=== PATIENT | female | born 1960 | race Caucasian/White ===

== ENCOUNTER → 2016-04-07 | Outpatient (CLI) | payer OTHER, MEDICAID | LOC: BRMIMAGING 10:56 | PROVIDERS: ATTEND Internal Medicine | DX: M19.041 Primary osteoarthritis, right hand (principal); M19.042 Primary osteoarthritis, left hand; M16.11 Unilateral primary osteoarthritis, right hip | CPT/HCPCS: 73130-PO; 73521-PO ==

== ENCOUNTER → 2016-04-18 | Outpatient (CLI) | payer OTHER, MEDICAID | LOC: FIMAGING 12:43 | PROVIDERS: ATTEND Internal Medicine | DX: R05 Cough (principal) ==

== ENCOUNTER → 2016-04-26 | Outpatient (CLI) | payer OTHER, MEDICAID ==
[~2016-04-26] MED LIST: IOPAMIDOL (ISOVUE-300) 100 ML BTL IV ONE
== END ==
LOC: CIMAGING 09:55
PROVIDERS: ATTEND Internal Medicine
DX: J44.9 Chronic obstructive pulmonary disease, unspecified (principal); K80.20 Calculus of gallbladder without cholecystitis without obstruction; R19.05 Periumbilic swelling, mass or lump; I25.10 Atherosclerotic heart disease of native coronary artery without angina pectoris; F17.200 Nicotine dependence, unspecified, uncomplicated
CPT/HCPCS: 71260; 74177; Q9967

== ENCOUNTER 2016-06-14 11:42 | Observation (INO) | payer OTHER, MEDICAID ==
[2016-06-14] MEDS ORDERED: ceFAZolin 1 GM/5 ML SYR ONE (12:49)
[2016-06-14] MEDS ORDERED: BUPIVACAINE 0.5% 30 ML SDV ONE (12:49)
[2016-06-14] MEDS ORDERED: HEPARIN 1000 UNIT/1 ML MDV ONE (12:49)
[2016-06-14] MEDS ORDERED: LIDOCAINE 1% 5 ML SDV ID PRN (12:49)
[2016-06-14] MEDS ORDERED: LR 1,000 ML IV ONE (12:49)
[2016-06-14] MEDS ORDERED: cefOXitin SODIUM 1 GM in D5W 50 ML IV ONE (13:00)
[2016-06-14] MEDS ORDERED: MIDAZOLAM 2 MG/2 ML VIAL ONE (14:42)
[2016-06-14] MEDS ORDERED: fentaNYL 250 MCG/5 ML INJ ONE (14:53)
[2016-06-14] MEDS ORDERED: PROPOFOL 200 MG/20 ML VIAL ONE (14:55)
[2016-06-14] MEDS ORDERED: fentaNYL 100 MCG/2 ML INJ ONE ×2 (15:51→17:08)
[2016-06-14] MEDS ORDERED: HYDROmorphONE/DILAUDID 1 MG/ML SYR IVP PRN (17:27)
[2016-06-14] MEDS ORDERED: ONDANSETRON 4 MG/2 ML VIAL IVP PRN (17:27)
[2016-06-14] MEDS ORDERED: oxyCODONE IR 5 MG TAB PO PRN (17:29)
[2016-06-14] MEDS ORDERED: NS 1,000 ML IV SCH (17:30)
[2016-06-14] MEDS ORDERED: LORazepam 2 MG/ML INJ IVP PRN (17:31)
[2016-06-14 18:17] LABS: HEMATOCRIT 44.1 % (38.0-47.0)
[2016-06-14] MEDS ORDERED: LORazepam 2 MG/ML INJ ONE (18:17)
[2016-06-14] MEDS ORDERED: ALBUTEROL 3 ML DEYVIAL ONE (18:21)
[2016-06-14] MEDS ORDERED: NICOTINE 21 MG/24 HR PATCH TD SCH (20:00)
--- NOTE | 2016-06-14 21:47 | POSTOPPROG ---
Post Op Note Date of Operation: 06/14/16 Surgeon: Philip Feldman Buccaro: sera Anesthesiologist: warm Anesthesia: GET(General Endotracheal) Pre-op Diagnosis: cholelithiasis/ incarcerated ventral hernia Post-op Diagnosis: same + crrhosis Indication: pain Procedure: lap allison/ lap wedge liver bx/ repair incarcerated ventral hernia Findings: cirrhosis, stones, 3 cm incarceratedventral hernia Inf/Abcess present in the surg proc area at time of surgery?: No Depth: Organ Space EBL: Minimal Complications: 0 Specimen(s): gallbladder/ liver bx/ hernia sac
--- NOTE | 2016-06-14 22:00 | SOAPPROG ---
SOAP Progress Note Assessment/Plan: Assessment: 55 female postop from hernia repair and lap allison and wedge liver bx now insisting on going home against our advise/ she o2 supplementation and watch for bleeding internally as well as in wound/ she has already started a hematoma in evans incision she refuses to listen and insists on leaving i have spent over 90 min with pt and family Plan:arrange home o2/ office fu in am/ no smoking and ice to incision 06/14/16 21:56 Objective: Vital Signs Temp Pulse Resp BP Pulse Ox 37.1 C 79 20 117/69 95 06/14/16 19:46 06/14/16 21:16 06/14/16 21:16 06/14/16 19:46 06/14/16 21:16 Laboratory Results 06/14/16 18:10 06/13/16 06/14/16 06/15/16 05:59 05:59 05:59 Intake Total 1450 Output Total 10 Balance 1440 ICD10 Worksheet Patient Problems: Problems Problem Status Onset Incarcerated ventral hernia Acute - ICD10 Problem Qualifiers (1) Incarcerated ventral hernia
[2016-06-14 22:19] VITALS: BP 113/79; PULSE 75; RESP 16; TEMP 98.5; O2SAT 97
[2016-06-16] MEDS ORDERED: ENOXAPARIN 40 MG/0.4 ML SYR SC SCH (09:00)
--- NOTE | 2016-06-17 13:56 | GOP ---
[f rep st] OPERATIVE REPORT DATE OF OPERATION: 06/14/2016 SURGEON: Philip Feldman MD PREOPERATIVE DIAGNOSIS: 1. Incarcerated ventral hernia. 2. Symptomatic cholelithiasis. POSTOPERATIVE DIAGNOSIS: 1. Incarcerated ventral hernia. 2. Symptomatic cholelithiasis. 3. Cirrhosis. PROCEDURE PERFORMED: 1. Laparoscopic cholecystectomy. 2. Laparoscopic liver wedge biopsy. 3. Open repair of incarcerated ventral hernia. FINDINGS: The patient was found to have some form of cirrhosis; final path is pending. She had a no ninflamed gallbladder with stones, and she had a 2 cm ventral hernia defect with incarcerated preper itoneal fat. DESCRIPTION OF PROCEDURE: Patient was taken to the operating room where she received satisfactory g eneral endotracheal anesthesia. She was placed in a supine position, and prepped and draped in the u sual sterile fashion. A transverse incision was made over the incarcerated ventral hernia with disse ction carried down through subcutaneous tissue. The hernia sac was dissected free from surrounding t issue. The sac was opened at the fascia level, incarcerated fatty tissue was excised with electrocau jose, and the remainder was reduced. A 10 mm trocar was introduced to this hernia site, and pneumope ritoneum was established. Three other trocars were placed in the upper abdomen under direct vision. The liver was surprisingly quite nodular. A wedge biopsy was taken of the liver on the right lobe. H emostasis was obtained with electrocautery. Attention was then turned to the gallbladder which was elevated up. The cystic triangle was carefull y dissected free. The cystic duct and cystic artery were exposed. They were multiply hemoclipped and divided with care to avoid injury to the common duct. A good clear view had been established. The peritoneum over the gallbladder was incised and the gallbladder was dissected free from the liver be d and extracted through the ventral hernia site. Hemostasis was assured. Wound was irrigated. Trocar s were removed under direct vision. Trocar sites were closed with 4-0 Monocryl subcuticular stitch f or the skin, and all layers infiltrated with Marcaine. Attention was then turned to the hernia site which was closed in a two-layer, [id number] type t ransverse closure using 0 Surgilon mattress sutures. She tolerated the procedure well. There were no complications. Taken to the recovery room in good co ndition. /[id number]/MODL
== END 2016-06-14 23:43 | disposition home or self-care (01) ==
LOC: FSGY 11:42 → F3E 17:27
PROVIDERS: ADMIT Surgery; ATTEND Surgery
DX: K80.00 Calculus of gallbladder with acute cholecystitis without obstruction (principal); K43.6 Other and unspecified ventral hernia with obstruction, without gangrene; K74.60 Unspecified cirrhosis of liver
CPT/HCPCS: 47379; 47562; 49561; 88302; 88304; 88307; 88313; J0690; J0697; J2060; J2250; J2704; J3010

== ENCOUNTER 2016-06-20 13:52 | Inpatient (IN) | payer OTHER, MEDICAID ==
[2016-06-20] MEDS ORDERED: HYDROmorphONE/DILAUDID 1 MG/ML SYR IVP ONE ×3 (14:59→18:58)
[2016-06-20] MEDS ORDERED: ONDANSETRON 4 MG/2 ML VIAL IVP ONE (15:00)
[2016-06-20] MEDS ORDERED: NS 1,000 ML IV ONE (15:01)
[2016-06-20 15:37] LABS: % IMMATURE GRANULYOCYTES 0.3 % (0.0-1.1); ABSOLUTE IMMATURE GRANULOCYTES 0.02 10^3/uL (0.00-0.10); ADD DIFF? NO; ADD MORPH? NO; ADD SCAN? NO; ATYPICAL LYMPHOCYTE FLAG 0 (0-99); FRAGMENT RBC FLAG 0 (0-99); HEMATOCRIT 38.9 % (38.0-47.0); HEMOGLOBIN 13.7 g/dL (12.6-16.3); LEFT SHIFT FLG 0 (0-99); LIPEMIA HEMOLYSIS FLAG 90 (0-99); MEAN CELL HEMOGLOBIN 32.2 pg (27.9-34.1); MEAN CELL HEMOGLOBIN CONCENTR. 35.2 g/dL (32.4-36.7); MEAN CELL VOLUME 91.5 fL (81.5-99.8); MEAN PLATELET VOLUME 8.8 fL (8.7-11.7); PLATELET CLUMPS FLAG 0 (0-99); PLATELET COUNT 300 10^3/uL (150-400); RED BLOOD CELL COUNT 4.25 10^6/uL (4.18-5.33); RED CELL DISTRIBUTION WIDTH 12.7 % (11.5-15.2)
[2016-06-20] MEDS ORDERED: HYDROmorphONE/DILAUDID 1 MG/ML SYR ONE (15:40)
--- NOTE | 2016-06-20 15:40 | EDPHY ---
H & P Time Seen by Provider: 06/20/16 14:45 HPI/ROS: CHIEF COMPLAINT: Fever, abdominal pain HISTORY OF PRESENT ILLNESS: 55-year-old female 1 week status post cholecystectomy and ventral hernia repair presents with fever and abdominal pain. She was doing well in the postoperative period until this morning when she developed fever and shaking chills. Associated with central abdominal pain, swelling and bruising. Pain is moderate and increases coughing and deep inspiration. No change in usual cough. No dysuria. REVIEW OF SYSTEMS: Constitutional: No fever, no chills Eyes: No visual changes ENT: No sore throat Respiratory: no shortness of breath Cardiac: No chest pain Genitourinary: No hematuria, no dysuria Musculoskeletal: No leg pain or swelling Skin: No rash Neurological: No headache, no weakness Psychiatric: No depression Past Medical/Surgical History: Cholecystectomy Hepatitis-C COPD, on home oxygen in the postoperative period Family history: Hemophilia Social History: FH: Hemophilia, pt is carrier Smoking Status: Heavy smoker Physical Exam: General Appearance: Alert, pleasant Eyes: Pupils equal and round, no conjunctival pallor or injection ENT, Mouth: Mucous membranes moist Neck: Normal inspection Respiratory: Lungs are clear to auscultation Cardiovascular: Regular rate and rhythm Gastrointestinal: Abdomen is soft, periumbilical surgical wound is intact, with surrounding erythema, just above the surgical incisions there is a 10 cm firm and tender area of swelling, with overlying ecchymosis that extends from the upper abdominal to the pelvis Neurological: A&O, nonfocal exam Skin: Warm and dry Extremities: Nontender, no pedal edema Psychiatric: Mood and affect normal Constitutional: Initial Vital Signs Temperature (C) 36.9 C 06/20/16 14:04 Heart Rate 86 06/20/16 14:04 Respiratory Rate 22 H 06/20/16 14:04 Blood Pressure 134/80 H 06/20/16 14:04 O2 Sat (%) 84 L 06/20/16 14:04 O2 Delivery Mode Nasal Cannula O2 (L/minute) 2 Allergies/Adverse Reactions: metal Allergy (Uncoded 06/20/16 14:02) Rash Home Medications: Medication Instructions Recorded Acetaminophen [Tylenol ES 500 mg 1,000 mg PO DAILY PRN 06/20/16 (*)] DESVENLAFAXINE SUCCINATE [Pristiq] 50 mg PO DAILY 06/20/16 Polyethylene Glycol 3350 [Miralax 17 gm PO DAILY PRN 06/20/16 17 gm (*)] clonazePAM [klonoPIN (*)] 1 mg PO DAILY PRN 06/20/16 lamoTRIgine [LamICTAL 100 MG (*)] 100 mg PO HS 06/20/16 oxyCODONE/APAP 5/325 [Percocet 0.5 - 1 tab PO DAILY PRN 06/20/16 5/325 (*)] traZODone [traZODONE 50MG (*)] 100 mg PO HS 06/20/16 Medical Decision Making - Diagnostics Imaging Results: Abdomen CT 06/20/16 15:36 Impression: 1. Periumbilical anterior abdominal wall hematoma measuring 11 x 3 x 7 cm. 2. Cholecystectomy with a small amount of fluid in the gallbladder fossa, anterior to the right lobe of the liver, and within the pelvis. Although this may represent postsurgical fluid, bile leak cannot be excluded. Consider nuclear medicine HIDA scan if clinically indicated. 3. Diffuse hepatic edema and diffuse fatty infiltration, new since the recent study. 4. No pneumoperitoneum, bowel obstruction, or drainable abscess. 5. Atherosclerotic aorta without aneurysm. 6. Diffuse anasarca. Findings and recommendations discussed with Emergency Department physician, Dr. Apple Hargrove at 1705 hours on June 20, 2016. Final report concurs with initial preliminary interpretation. Chest X-Ray 06/20/16 15:40 Impression: Emphysema/COPD with basilar atelectasis with no acute findings in the chest. ED Course/Re-evaluation: This patient presents with fever and abdominal pain after recent cholecystectomy and ventral hernia repair. Concerning for postoperative infection, possibly related to a postoperative hematoma. She required multiple doses of IV narcotics to control her pain. CT scan of the abdomen pelvis obtained and reveals a large hematoma, 11 x 3 x 7 cm. She also has new onset hyponatremia, of unclear etiology. Dr. Philip Feldman was consulted and will see the patient in the emergency department. Dr. Clyde Momin was consulted for admission. Differential Diagnosis: Differential diagnosis includes pyelonephritis, cholecystitis, influenza, cellulitis, pneumonia, abscess, meningitis. - Data Points Laboratory Results: Laboratory Results 06/20/16 14:00 06/20/16 14:00 Medications Given: Discontinued Medications Amlodipine Besylate (Norvasc) 5 mg PO EDNOW ONE Stop: 05/01/17 17:17 Last Admin: 06/20/16 17:42 Dose: Not Given Desmopressin Acetate (Ddavp) 2 mcg IVP ONCE ONE Stop: 06/21/16 09:32 Last Admin: 06/21/16 09:59 Dose: 2 mcg Desmopressin Acetate (Ddavp) 2 mcg IVP ONCE ONE Stop: 06/21/16 18:31 Last Admin: 06/21/16 18:15 Dose: 2 mcg Furosemide (Lasix Injection) 20 mg IVP ONCE ONE Stop: 06/20/16 20:05 Last Admin: 06/20/16 20:43 Dose: 20 mg Hydromorphone HCl (Dilaudid) 0.5 mg IVP EDNOW ONE Stop: 06/20/16 15:00 Last Admin: 06/20/16 15:15 Dose: 0.5 mg Hydromorphone HCl (Dilaudid) 0.5 mg IVP EDNOW ONE Stop: 06/20/16 15:42 Last Admin: 06/20/16 15:50 Dose: 0.5 mg Hydromorphone HCl (Dilaudid) 0.5 mg IVP EDNOW ONE Stop: 06/20/16 18:59 Last Admin: 06/20/16 19:17 Dose: 0.5 mg Sodium Chloride (Ns) 1,000 mls @ 0 mls/hr IV ONCE ONE PRN Reason: Wide Open Stop: 06/20/16 15:02 Last Admin: 06/20/16 15:26 Dose: 1,000 mls Dextrose (D5w) 1,000 mls @ 150 mls/hr IV CONT JAKY Stop: 12/18/16 09:44 Last Admin: 06/21/16 09:59 Dose: 1,000 mls Cefazolin Sodium/Dextrose (Ancef 2 Gm (Premix)) 100 mls @ 200 mls/hr IV ONCALL ONE PRN Reason: Protocol Stop: 06/22/16 13:32 Last Admin: 06/22/16 13:09 Dose: Not Given Ondansetron HCl (Zofran) 4 mg IVP EDNOW ONE Stop: 06/20/16 15:01 Last Admin: 06/20/16 15:26 Dose: 4 mg Departure - Departure Disposition: [facility] Acute Clinical Impression: Fever Qualifiers: Fever type: unspecified Qualified Code(s): R50.9 - Fever, unspecified Abdominal wall hematoma Qualifiers: Encounter type: initial encounter Qualified Code(s): S30.1XXA - Contusion of abdominal wall, initial encounter
[2016-06-20 15:44] LABS: ANION GAP 4 mEq/L (8-16); CARBON DIOXIDE 28 mEq/l (22-31); CHLORIDE 87 mEq/L (97-110); CREATININE 0.5 mg/dL (0.6-1.0); GLOMERULAR FILTRATION RATE > 60; GLUCOSE 95 mg/dL (70-100); POTASSIUM 4.4 mEq/L (3.5-5.2)
[2016-06-20 15:56] LABS: SODIUM 119 mEq/L (134-144)
[2016-06-20] MEDS ORDERED: IOPAMIDOL (ISOVUE-300) 100 ML BTL IV ONE (16:02)
[2016-06-20 17:09] LABS: COLOR COLORLESS; LEUKOCYTE ESTERASE,URINE NEGATIVE (NEGATIVE); NITRITE,URINE NEGATIVE (NEGATIVE)
[2016-06-20] MEDS ORDERED: amLODIPine BESYLATE 5 MG TAB PO ONE (17:16)
[2016-06-20 17:26] LABS: ALBUMIN 3.7 g/dL (3.5-5.0); BILIRUBIN,TOTAL 0.8 mg/dL (0.1-1.4); BILIRUBIN-CONJUGATED 0.4 mg/dL (0.0-0.5); BILIRUBIN-UNCONJUGATED 0.4 mg/dL (0.0-1.1); TOTAL PROTEIN 6.5 g/dL (6.3-8.2)
--- NOTE | 2016-06-20 19:52 | SOAPPROG ---
[facility] Progress Note Assessment/Plan: Assessment: PATIENT WELL-KNOWN TO ME WILL FOLLOW WITH YOU / SHE DID LEAVE AGAINST MEDICAL ADVICE 1 WEEK AGO LABS [facility] INCLUDING LFTS MODERATE ABDOMINAL WALL HEMATOMA WITH SMALL TRACE OF LEAKAGE Plan: MAY NEED HEMATOMA DRAINAGE 06/20/16 19:51 06/21/16 07:38 Objective: Vital Signs Temp Pulse Resp BP Pulse Ox 36.9 C 74 18 126/84 H 100 06/20/16 14:04 06/20/16 17:00 06/20/16 17:00 06/20/16 17:00 06/20/16 17:00 ICD10 Worksheet Patient Problems: Problems Problem Status Onset Incarcerated ventral hernia Acute
[2016-06-20] MEDS ORDERED: ONDANSETRON DISINTEGRATING 4 MG TAB PO PRN (20:02)
[2016-06-20] MEDS ORDERED: ONDANSETRON 4 MG/2 ML VIAL IVP PRN (20:02)
[2016-06-20] MEDS ORDERED: ACETAMINOPHEN 325 MG TAB PO PRN (20:02)
[2016-06-20] MEDS ORDERED: POLYETHYLENE GLYCOL 3350 17 GM PKT PO PRN (20:03)
[2016-06-20] MEDS ORDERED: FUROSEMIDE 20 MG/2 ML VIAL IVP ONE (20:04)
[2016-06-20] MEDS: lamoTRIgine 100 MG TAB PO SCH (20:43)
[2016-06-20] MEDS: traZODone 50 MG TAB PO SCH (20:43)
--- NOTE | 2016-06-20 20:53 | GHP ---
[f rep st] HISTORY AND PHYSICAL DATE OF ADMISSION: 06/20/2016 CHIEF COMPLAINT: Fever, swelling. HISTORY OF PRESENT ILLNESS: This is a 55-year-old female who recently had a cholecystectomy and yazmin tral hernia repair by Dr. Feldman. She had been doing okay, although her lower abdomen had swelling w ith a hematoma. Today, however, she had a fever and came to the emergency department. She has been having increasing edema as well, especially in her back and upper legs. She admits to drinking abo ut 2 gallons of water a day and has not been eating much over the last week. Her preoperative sodiu m level a month ago was 130. She denies any dysuria. She denies any cough. REVIEW OF SYSTEMS: A 10-point review of systems was obtained, other than stated above was negative. PAST MEDICAL HISTORY: 1. Hepatitis C, which is cured. 2. Bipolar and anxiety. SOCIAL HISTORY: No smoking or alcohol. FAMILY HISTORY: Both her father and sister have hemophilia, as well as her daughter. She says she was tested as a young child but was negative. She has had tubal ligations and teeth removals in the past without excessive bleeding. PHYSICAL EXAMINATION: VITAL SIGNS: Afebrile. Blood pressure is 126/84. Oxygen saturation is 84% on room air and is 100% on 2 L. Heart rate 74. GENERAL: The patient is well developed in no appar ent distress. HEENT: Nonicteric sclerae. Extraocular movements intact. Moist mucous membranes. NECK: Supple. No thyromegaly. LUNGS: Good effort. Clear to auscultation bilaterally. CARDIOVAS CULAR: Regular rate and rhythm. No murmurs or gallops. ABDOMEN: Positive bowel sounds. Periumbi lical hematoma with a slight amount of bleeding with the incision over the umbilicus. EXTREMITIES: 2+ edema, especially in the back and upper legs. NEURO: Alert and oriented x3. Moves all 4 extre mities. PSYCH: Normal mood and affect. LABORATORY DATA: CBC is completely normal. Sodium 119. Potassium 4.4. Creatinine is 0.5. Urine sodium is 11. CT scan of the chest shows periumbilical anterior abdominal wall hematoma at 11 x 3 x 7 cm, diffuse hepatic edema and diffuse fatty infiltration, which is new, with anasarca. ASSESSMENT: This is a 55-year-old female with a recent cholecystectomy and umbilical hernia repair, presenting with hyponatremia, anasarca, and possibly infected hematoma. PLAN: 1. Possibly infected hematoma: We are not seeing a fever here nor does she have an elevated white blood cell count. I am inclined to hold antibiotics and monitor and see if any more fever develops. 2. Hyponatremia: This is probably related to high water intake and anasarca. I am going to give h er a dose of Lasix tonight and will start her on fluid restriction and see what her sodium does antonette rrow. Her sodium level preop was 130, and thus, I am a little bit less worried of rapid correction, which I do not think will happen. 3. Anasarca: Diuretics as above. 4. Questionable hemophilia: Her sister is concerned that she might have underlying hemophilia. Carolynn vaughn was tested when she was younger and was negative. I think we can send off factor VIII and VII act ivity, which were both her sister's and father's defect. I do not think that it is going to come ba ck by the time that we can make decisions though. I would not give her any factor at this time. Carolynn vaughn is not significantly bleeding. 5. History of bipolar: Continue medications. 6. Admission: Patient will be admitted under full admission status. Case was discussed with the E R physician. Old records were reviewed and summarized in the HPI. /[id number]/MODL
[2016-06-20] MEDS: OXYCODONE/APAP 5/325 TAB PO PRN (22:32)
[2016-06-21 04:34] LABS: % IMMATURE GRANULYOCYTES 0.2 % (0.0-1.1); ABSOLUTE IMMATURE GRANULOCYTES 0.01 10^3/uL (0.00-0.10); ADD DIFF? NO; ADD MORPH? NO; ADD SCAN? NO; ATYPICAL LYMPHOCYTE FLAG 20 (0-99); FRAGMENT RBC FLAG 0 (0-99); HEMATOCRIT 37.4 % (38.0-47.0); HEMOGLOBIN 12.6 g/dL (12.6-16.3); LEFT SHIFT FLG 0 (0-99); LIPEMIA HEMOLYSIS FLAG 80 (0-99); MEAN CELL HEMOGLOBIN 32.1 pg (27.9-34.1); MEAN CELL HEMOGLOBIN CONCENTR. 33.7 g/dL (32.4-36.7); MEAN CELL VOLUME 95.2 fL (81.5-99.8); MEAN PLATELET VOLUME 8.7 fL (8.7-11.7); PLATELET CLUMPS FLAG 0 (0-99); PLATELET COUNT 265 10^3/uL (150-400); RED BLOOD CELL COUNT 3.93 10^6/uL (4.18-5.33); RED CELL DISTRIBUTION WIDTH 13.1 % (11.5-15.2)
[2016-06-21 04:51] LABS: ANION GAP 4 mEq/L (8-16); CALCIUM 8.5 mg/dL (8.5-10.4); CARBON DIOXIDE 33 mEq/l (22-31); CHLORIDE 97 mEq/L (97-110); CREATININE 0.7 mg/dL (0.6-1.0); GLOMERULAR FILTRATION RATE > 60; GLUCOSE 92 mg/dL (70-100); POTASSIUM 4.7 mEq/L (3.5-5.2); SODIUM 134 mEq/L (134-144)
[2016-06-21] MEDS: FUROSEMIDE 20 MG/2 ML VIAL IVP SCH ×3 (07:32→14:42)
[2016-06-21] MEDS: HYDROmorphONE/DILAUDID 1 MG/ML SYR IVP PRN ×2 (07:33→13:46)
[2016-06-21] MEDS: clonazePAM 1 MG TAB PO PRN (08:10)
[2016-06-21] MEDS: Desvenlafaxine Succinate [Pristiq] 50 MG PO SCH (08:10)
[2016-06-21] MEDS ORDERED: DESMOPRESSIN ACETATE 4 MCG/ML INJ IVP ONE ×2 (09:31→18:30)
[2016-06-21] MEDS ORDERED: D5W 1,000 ML IV SCH ×2 (09:45→12:15)
[2016-06-21 10:29] LABS: ANION GAP 5 mEq/L (8-16); CALCIUM 8.8 mg/dL (8.5-10.4); CARBON DIOXIDE 33 mEq/l (22-31); CHLORIDE 95 mEq/L (97-110); CREATININE 0.6 mg/dL (0.6-1.0); GLOMERULAR FILTRATION RATE > 60; GLUCOSE 97 mg/dL (70-100); POTASSIUM 4.7 mEq/L (3.5-5.2); SODIUM 133 mEq/L (134-144)
--- NOTE | 2016-06-21 11:25 | GCON ---
[f rep st] CONSULTATION NEPHROLOGY CONSULTATION DATE OF CONSULTATION: 06/21/2016 REASON FOR CONSULTATION: Hyponatremia with rapid correction. HISTORY OF PRESENT ILLNESS: This is a pleasant 55-year-old female with a past medical history signi ficant for bipolar disorder, untreated, and anxiety who now presents with issues related to an abdom inal wound, disequilibrium, and hyponatremia. History is obtained from the medical records and the patient. The patient was admitted yesterday with complaints of fever, abdominal swelling, and disequilibrium. On 06/17/2016, the patient had undergone a ventral hernia repair. Postoperatively, she has had an orexia and constipation. The patient was noting worsening abdominal distention and abdominal wall s welling and a hematoma. She was also having some fevers and sweats. Relating to this, she presente d to the hospital with evidence of a worsening abdominal wall fluid collection and a serum sodium le melody of 119. Her other electrolytes were stable. She did have a slight decrease in her blood pressu re last evening, but she has appeared hemodynamically stable. Initial urine studies included a urin alysis which was negative with a specific gravity of 1.008. A random urine sodium was performed whi ch was 11. The patient's CBC was relatively unremarkable. The patient underwent a CAT scan of the abdomen which was notable for her abdominal wall fluid collection, but it was also interesting for e vidence of diffuse edema and fatty infiltration of the liver which was new since a study performed i april. The patient had also undergone a previous cholecystectomy along with her ventral hernia re pair. The patient was placed on a fluid restriction. A repeat sodium level performed this morning was 134 . Her input suggested an intake of 800 with urine output of 1400 during that time. The patient has not had a plethora of past sodium levels performed at this institution. During April, she did have a sodium level of 129 and 130. The patient admits to having polydipsia and polyuria. She states she is an avid water drinker. In talking to her, she does have urinary frequency at night. She states other family members have had this. She denies a history of past lithium administration. As related to the above issues, we are asked by Dr. Ledezma to assist the patient's renal diagnosis and management. PAST MEDICAL HISTORY: 1. Hepatitis C. 2. Bipolar disorder. PAST SURGICAL HISTORY: 1. Tubal ligation. 2. T and A. 3. Recent surgery. MEDICATIONS: Pristiq 50 mg daily, oxycodone p.r.n., Tylenol p.r.n., trazodone 100 mg p.o. q.h.s., p olyethylene glycol daily, Lamictal 100 mg q.h.s., Klonopin 1 mg p.r.n. FAMILY HISTORY: Positive for hemophilia. This is being further evaluated. SOCIAL HISTORY: The patient was born in [place]. She has 2 daughters. One lives locally. She is a n active smoker. She does not drink alcohol. REVIEW OF SYSTEMS: The patient has had some chills and sweats. She is not having any currently. S he has had some recent headaches. She denies vision changes. She has chronic sinus symptoms and PN D. She denies a sore throat. She does have probable COPD based on symptoms and a past CAT scan of the chest. She is on oxygen at present. She was not on it at home. She denies chest pain or palpi tations. She has abdominal distention and a hematoma. She has been having constipation. She denie s dysuria. She has had some occasional lower extremity edema. She denies numbness in her fingers o r toes. She does not have a history of diabetes or thyroid disease. She denies skin rashes. PHYSICAL EXAM: GENERAL: At the time of exam, the patient is appropriate and alert. VITAL SIGNS: Temperature afebrile, pulse 89, blood pressure 123/85. HEENT: Eyes: Sclerae clear. Oropharynx cl ear. NECK: No lymphadenopathy or thyromegaly. The patient appears to have some jugular venous dis tention. LUNGS: Diminished throughout but otherwise clear to auscultation. CARDIOVASCULAR: Regul ar rate and rhythm with a systolic murmur at the left upper sternal border. ABDOMEN: Distended. A large dressing is in place. She has a significant hematoma underlying. /RECTAL: Deferred. EXT REMITIES: Trace ankle edema. INTEGUMENTARY: Generally clear. NEURO: No focal findings. LABORATORY TESTS: Sodium 134, potassium 4.7, creatinine 0.7. White count 4.1, hematocrit 37.4, bertha telets 265. Urinalysis negative with a specific gravity of 1.008. Random urine sodium 11. IMPRESSION AND PLAN: 1. Severe hyponatremia. The patient appears to have a past history of mild hyponatremia. She has a history of polydipsia and polyuria. I cannot exactly rule out nephrogenic diabetes insipidus, but her previous low urine sodium suggests this is unlikely. We will be able to check some additional urine osmolalities to assess for this. 2. 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 Postopera tively, she has had ongoing water intake with decreased solute intake. This is likely the result of her acute lowering of her serum sodium level. The patient's initial urine studies suggest excretio n of a dilute urine. This, along with her fluid restriction, is the etiology of her rapid correctio n. The patient, with a sodium level of 119, is just slightly into the high risk area for osmotic de myelination syndrome with rapid correction. Other factors relating to her history put her at lower risk for this. At this point, I do believe it is of value to go ahead and attempt some lowering whi le ensuring we are not doing harm. Her last serum sodium was 134 at 3 a.m., which was approximately 7 hours ago. I am going ahead and giving DDAVP and initiating hypotonic IV fluid administration. Next, I am going to order another serum sodium now. We will follow this q.2 hours for now. I would like to lower her into the mid to upper 120s if possible and then hold her there overnight. I did review the treatment plan with the patient, who is agreeable with the plan. Again, we will monitor urine osmolalities if she produces urine following DDAVP. This will help determine whether she has an element of nephrogenic diabetes insipidus. 3. Pulmonary status: The patient appears to have baseline chronic obstructive pulmonary disease. She is on some oxygen. We will continue to monitor this. 4. Liver changes on CAT scan. Actually, the patient appears to have abnormal transaminases. I viola l check PT/INR. She does not appear to be having evidence of liver failure. I am concerned she cou ld have been taking large amounts of acetaminophen; but again, given her normal transaminases at thi s point, I do not believe this represents an ongoing concern. I will review with the hospitalist se morgan. 5. Cardiomegaly and jugular venous distention. I will go ahead and order an echocardiogram. 6. Family history of hemophilia. This is being further evaluated. 7. Fluid collection. The patient is to go for drainage at some point by Dr. Feldman. I have a call in to him to discuss her overall clinical picture. Thank you for allowing us to participate in this lady's care. We will continue to follow along rebecca avendano with you. /[id number]/MODL
[2016-06-21] MEDS: OXYCODONE/APAP 5/325 TAB PO PRN ×2 (11:46→16:46)
[2016-06-21] MEDS ORDERED: OXYCODONE/APAP 5/325 TAB PO PRN (13:40)
--- NOTE | 2016-06-21 14:06 | SOAPPROG ---
ELID[facility] Progress Note Assessment/Plan: Assessment/Plan: 55 Y F recent lap allison and VH repair, now with hematoma, admitted with fever, hyponatremia. Surgery postponed until medically cleared. Tentatively on our OR schedule for tomorrow, 06/22, at 1 pm for I&D of abdominal wall hematoma. Seen and examined with Dr. Feldman. S: hernia repair/hematoma is sore. O: alert, nad +epigastric ecchymosis and swelling 06/21/16 14:02 Objective: Vital Signs Temp Pulse Resp BP Pulse Ox 37.1 C 71 17 101/69 94 06/21/16 12:00 06/21/16 12:00 06/21/16 12:00 06/21/16 12:00 06/21/16 12:00 Laboratory Results 06/21/16 03:55 06/20/16 06/21/16 06/22/16 05:59 05:59 05:59 Intake Total 800 Output Total 1400 Balance -600 ICD10 Worksheet Patient Problems: Problems Problem Status Onset Incarcerated ventral hernia Acute
[2016-06-21 14:20] LABS: FACTOR VII ACTIVITY 35 % (65 - 180); FACTOR VIII ACTIVITY 122 % (55 - 200)
[2016-06-21 14:25] LABS: ANION GAP 9 mEq/L (8-16); CALCIUM 8.8 mg/dL (8.5-10.4); CARBON DIOXIDE 31 mEq/l (22-31); CHLORIDE 93 mEq/L (97-110); CREATININE 0.6 mg/dL (0.6-1.0); GLOMERULAR FILTRATION RATE > 60; GLUCOSE 152 mg/dL (70-100); POTASSIUM 4.4 mEq/L (3.5-5.2); SODIUM 133 mEq/L (134-144)
--- NOTE | 2016-06-21 15:06 | HOSPPROG ---
Hospitalist Progress Note Assessment/Plan: * Hyponatremia -over-rapid correction - d/w Dr. 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 Rodriguez - he will consult * Edema/anasarca -IV Lasix -check ECHO * Recent allison - fluid collection seen on CT -normal LFT makes bile lead unlikely * Tobacco dependence - likely COPD - O2 Subjective: abd wall pain due to hematoma Objective: Vital Signs Temp Pulse Resp BP Pulse Ox 37.1 C 71 17 101/69 94 06/21/16 12:00 06/21/16 12:00 06/21/16 12:00 06/21/16 12:00 06/21/16 12:00 Laboratory Results 06/21/16 03:55 06/20/16 06/21/16 06/22/16 05:59 05:59 05:59 Intake Total 800 Output Total 1400 Balance -600 CT a/p - abd wall hematoma, anasarca - Physical Exam Constitutional: no apparent distress, appears nourished, not in pain Cardiovascular: regular rate and rhythym, no murmur, rub, or gallop Respiratory: no respiratory distress, no rales or rhonchi, clear to auscultation Gastrointestinal: normoactive bowel sounds, soft, non-tender abdomen, no palpable masses, other (hematoma under dressing - not examined) Skin: no rashes or abrasions, no fluctuance, no induration Neurologic: AAOx3, sensation intact bilaterally Psychiatric: interacting appropriately, not anxious, not encephalopathic, thought process linear ICD10 Worksheet Patient Problems: Problems Problem Status Onset Incarcerated ventral hernia Acute
[2016-06-21 15:34] LABS: ANION GAP 9 mEq/L (8-16); CALCIUM 8.4 mg/dL (8.5-10.4); CARBON DIOXIDE 34 mEq/l (22-31); CHLORIDE 92 mEq/L (97-110); CREATININE 0.6 mg/dL (0.6-1.0); GLOMERULAR FILTRATION RATE > 60; GLUCOSE 82 mg/dL (70-100); POTASSIUM 4.5 mEq/L (3.5-5.2); SODIUM 135 mEq/L (134-144)
--- NOTE | 2016-06-21 16:12 | ECHO ---
[id number] + + [address] : : [place] [address] : : [phone] + + Adult Echocardiographic Report + + :Name: JAMES MONTES DE OCA Julianna Date: 06/21/2016 02:00 PM BP: 101/68 mmHg : : Hospital Admission Number: [id number] : :: 1960 Gender: Female Height: 62 in : :Age: 55 yrs Race: WH Weight: 131 lb : :Reason For Study: CHF : : BSA: 1.6 meters2: :History: CHF : + + MMode/2D Measurements \T\ Calculations IVSd: 0.88 cm RVDd: 3.8 cm FS: 31.6 % Ao root diam: LVPWd: 0.95 cm LVIDd: 4.5 cm EDV(Teich): 3.3 cm LVIDs: 3.1 cm 92.5 ml ESV(Teich): 37.2 ml EF(Teich): 59.7 % LVLd ap4: 7.8 cm SV(MOD-sp4): EDV(MOD-sp4): 54.0 ml 99.0 ml LVLs ap4: 6.2 cm ESV(MOD-sp4): 45.0 ml EF(MOD-sp4): 54.5 % Normal Measurement Values: + + :LVIDd (3.5-5.7cm) IVSd (0.6-1.1cm) LVPWd (0.6-1.1cm) Aortic Root (2.0-3.7cm)Left Atrium (1.5-4.0cm): :LV Vol(d) (76-115ml) LV Vol(s) (29-48ml) Ejec Fraction (50-65%)PV Jayesh (0.6- 1.2m/s) TV Jayesh (0.4-1.0m/s) : :MV E Jayesh (0.8-1.0m/s)MV A Jayesh (0.3-1.0m/s)LVOT Jayesh (0.7-1.2m/s) Asc Ao Jayesh ( 0.9-1.8m/s) : + + Doppler Measurements \T\ Calculations MV E max jayesh: Ao V2 max: LV V1 max: TR max jayesh: 37.8 cm/sec 86.3 cm/sec 81.6 cm/sec 294.4 cm/sec MV A max jayesh: Ao max PG: LV V1 max PG: TR max P.7 cm/sec 3.0 mmHg 2.7 mmHg 34.7 mmHg MV E/A: 1.1 RAP systole: MV dec time: 5.0 mmHg 0.29 sec RVSP(TR): 39.7 mmHg Left Ventricle The left ventricle is normal in size and function. There is normal left ventricular wall thickness. Ejection Fraction = 55%. Questionable basal to mid inferoseptal hypokinesis. Right Ventricle The right ventricle is borderline dilated. The right ventricular systolic function is borderline reduced. Atria The left atrial size is normal. Right atrial size is normal. Mitral Valve The mitral valve is normal in structure and function. There is no mitral valve stenosis. There is mild mitral regurgitation. Tricuspid Valve The tricuspid valve is normal in structure and function. There is no tricuspid stenosis. There is mild tricuspid regurgitation. Right ventricular systolic pressure is 40mmHg. There is Doppler evidence for mild pulmonary hypertension. Aortic Valve The aortic valve is trileaflet. There is no aortic stenosis. There is no aortic insufficiency. Pulmonic Valve The pulmonic valve is not well visualized. Great Vessels The aortic root is normal size. Dilated sinus of valsava. Pericardium/Pleural trivial pericardial effusion. Conclusion A two-dimensional transthoracic echocardiogram with M-mode and Doppler was performed. The left ventricle is normal in size and function. Ejection Fraction = 55%. The right ventricle is borderline dilated. The right ventricular systolic function is borderline reduced. There is mild mitral regurgitation. There is mild tricuspid regurgitation. Right ventricular systolic pressure is 40mmHg. There is Doppler evidence for mild pulmonary hypertension. Dilated sinus of valsava. trivial pericardial effusion. Final Reading Physician: Gale Lopez signed on 06/21/2016 04:10 PM Ordering Physician: Izabella Swanson Performed By: Sanna Cameron
[2016-06-21 16:25] LABS: ALANINE AMINOTRANSFERASE 28 IU/L (9-52); ALBUMIN 3.4 g/dL (3.5-5.0); ALKALINE PHOSPHATASE 63 IU/L (38-126); ANION GAP 8 mEq/L (8-16); ASPARTATE AMINOTRANSFERASE 20 IU/L (14-46); BILIRUBIN,TOTAL 0.8 mg/dL (0.1-1.4); CALCIUM 8.3 mg/dL (8.5-10.4); CARBON DIOXIDE 32 mEq/l (22-31); CHLORIDE 94 mEq/L (97-110); CREATININE 0.6 mg/dL (0.6-1.0); GLOMERULAR FILTRATION RATE > 60; GLUCOSE 129 mg/dL (70-100); POTASSIUM 4.2 mEq/L (3.5-5.2); SODIUM 134 mEq/L (134-144); TOTAL PROTEIN 5.8 g/dL (6.3-8.2)
[2016-06-21 17:57] LABS: ANION GAP 7 mEq/L (8-16); CALCIUM 8.5 mg/dL (8.5-10.4); CARBON DIOXIDE 32 mEq/l (22-31); CHLORIDE 92 mEq/L (97-110); CREATININE 0.6 mg/dL (0.6-1.0); GLOMERULAR FILTRATION RATE > 60; GLUCOSE 118 mg/dL (70-100); POTASSIUM 4.6 mEq/L (3.5-5.2); SODIUM 131 mEq/L (134-144)
[2016-06-21 18:18] LABS: INR 1.21 (0.83-1.16); PROTIME(PATIENT) 15.3 SEC (12.0-15.0)
[2016-06-21 18:19] LABS: APTT 28.1 SEC (23.0-38.0)
[2016-06-21] MEDS: traZODone 50 MG TAB PO SCH (20:08)
[2016-06-21] MEDS: lamoTRIgine 100 MG TAB PO SCH (20:08)
--- NOTE | 2016-06-22 02:32 | GCON ---
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 HISTORY OF PRESENT ILLNESS: The patient is a pleasant 55-year-old female, who underwent surgical repair of an incarcerated ventral abdominal wall hernia and cholecystectomy with liver wedge biopsy on June 14, 2016. 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 She has evidently been tested for both deficiencies in the past and was told that she was a "carrier." She has had multiple surgeries in the past, including a tubal ligation, multiple dental extractions, without significant bleeding. She does report oozing approximately 3 days' duration following a dental extraction done earlier this year. She presented to the hospital yesterday with increasing swelling in the periumbilical region with increasing ecchymoses. She also had hyponatremia, which was thought to be due to excessive water intake. Subsequent imaging revealed an 11 cm x 3 cm x 7 cm periumbilical anterior abdominal wall hematoma. The patient was admitted for further management. Her factor VII activity level was checked and was low at 35 (normal 65-180). Factor VIII level is normal. PTT and PT have not been drawn. The patient is scheduled to go to the operating room tomorrow for incision and drainage of her abdominal wall hematoma. Hematology consultation is requested prior to surgery. The patient does report that her sister has factor VII deficiency and has had bleeding and has required prophylactic administration of medical therapy prior to surgeries. PAST MEDICAL HISTORY: 1. Hepatitis C (status post curative therapy). 2. Bipolar disorder. 3. Anxiety. SOCIAL HISTORY: The patient lives with her daughter in [place]. She is a nonsmoker. FAMILY HISTORY: Outlined above. PHYSICAL EXAMINATION: GENERAL: The patient is resting comfortably. She is in no acute distress. HEENT: Pupils equal. Sclerae are nonicteric. Conjunctivae normal. ABDOMEN: Reveals periumbilical ecchymoses with a bandage directly over her surgical site with dry blood on the bandage. LABORATORY DATA: As outlined above. Additionally, CBC from today, white count 4.1, hemoglobin 12.6, hematocrit 37.4, platelet count is 265,000. BUN is 9, creatinine 0.6. Calcium is 8.3. IMPRESSION: 1. Mild factor VII deficiency. 2. Postoperative abdominal wall hematoma. The patient is a pleasant 55-year-old female with a stated family history of factor VIII and VII deficiency. She presents with a postoperative abdominal wall hematoma. Laboratory testing confirms mild factor VII deficiency. The patient's factor VII deficiency is quite mild, and bleeding is uncommon in patients with factor VII activity levels greater than 10%, which makes it somewhat surprising that she has developed a postoperative abdominal wall hematoma. Given that she has experienced delayed postoperative bleeding, I do think giving her prophylactic factor in the form of recombinant factor VIIa ( NovoSeven) prior to her surgery tomorrow is reasonable. I discussed this with the patient. I recommend that she be given a dose of recombinant factor VIIa ( NovoSeven) at a low dose of 15 mcg/kg approximately 1 hour prior to her abdominal wall hematoma incision and drainage tomorrow. I think she would benefit from an additional dose 12 hours later. I discussed this with the patient. She consents to this therapy. We discussed that there is a thrombosis risk associated with NovoSeven. To complete her evaluation, I will send a PT, PTT, thrombin time, and fibrinogen this evening. The patient did ask me to contact her sister by telephone, who has more family medical history. I did attempt to contact her sister this evening but was unable to reach her. Our service will continue to follow the patient during her hospital stay. Her questions were answered. Her case was discussed with nursing. Total time for today's visit was approximately 50 minutes, of which greater than 50% was spent in counseling and care coordination. /[id number]/MODL MTDD
[2016-06-22] MEDS: OXYCODONE/APAP 5/325 TAB PO PRN ×2 (04:23→20:18)
[2016-06-22 05:33] LABS: % IMMATURE GRANULYOCYTES 0.6 % (0.0-1.1); ABSOLUTE IMMATURE GRANULOCYTES 0.03 10^3/uL (0.00-0.10); ADD DIFF? NO; ADD MORPH? NO; ADD SCAN? NO; ATYPICAL LYMPHOCYTE FLAG 20 (0-99); FRAGMENT RBC FLAG 0 (0-99); HEMATOCRIT 38.4 % (38.0-47.0); HEMOGLOBIN 13.4 g/dL (12.6-16.3); LEFT SHIFT FLG 0 (0-99); LIPEMIA HEMOLYSIS FLAG 90 (0-99); MEAN CELL HEMOGLOBIN 33.4 pg (27.9-34.1); MEAN CELL HEMOGLOBIN CONCENTR. 34.9 g/dL (32.4-36.7); MEAN CELL VOLUME 95.8 fL (81.5-99.8); PLATELET CLUMPS FLAG 10 (0-99); PLATELET COUNT 263 10^3/uL (150-400); RED BLOOD CELL COUNT 4.01 10^6/uL (4.18-5.33); RED CELL DISTRIBUTION WIDTH 13.2 % (11.5-15.2)
[2016-06-22 05:53] LABS: ANION GAP 7 mEq/L (8-16); CALCIUM 8.7 mg/dL (8.5-10.4); CARBON DIOXIDE 31 mEq/l (22-31); CHLORIDE 92 mEq/L (97-110); CREATININE 0.6 mg/dL (0.6-1.0); GLOMERULAR FILTRATION RATE > 60; GLUCOSE 105 mg/dL (70-100); SODIUM 130 mEq/L (134-144)
[2016-06-22] MEDS: Desvenlafaxine Succinate [Pristiq] 50 MG PO SCH (08:37)
[2016-06-22] MEDS ORDERED: BUPIVACAINE 0.5% 30 ML SDV ONE (11:34)
[2016-06-22] MEDS ORDERED: ceFAZolin 2 GM/DEXTROSE 100 ML IV ONE (13:03)
[2016-06-22] MEDS ORDERED: [UNRECOGNIZED DRUG - OTHER] IV ONE (13:12)
[2016-06-22] MEDS ORDERED: THROMBIN (BOVINE) 20,000 UNIT SPRAY TP ONE (13:17)
[2016-06-22] MEDS ORDERED: DIAZEPAM 10 MG/2 ML SYR ONE (13:30)
[2016-06-22] MEDS ORDERED: fentaNYL 250 MCG/5 ML INJ ONE (13:30)
[2016-06-22] MEDS ORDERED: PROPOFOL/EMULSION 500 MG/50 ML BOTTLE IV ONE (13:31)
[2016-06-22] MEDS ORDERED: [UNRECOGNIZED DRUG - MIXTURE] IVP ONE (14:00)
[2016-06-22] MEDS ORDERED: ONDANSETRON 4 MG/2 ML VIAL ONE (14:01)
[2016-06-22] MEDS ORDERED: ROCURONIUM 50 MG/5 ML VIAL ONE (14:04)
[2016-06-22] MEDS ORDERED: LIDOCAINE 2% 5 ML SDV ONE (14:04)
[2016-06-22] MEDS ORDERED: DEXAMETHASONE 4 MG/ML VIAL ONE (14:04)
[2016-06-22] MEDS ORDERED: SUGAMMADEX SODIUM 200 MG/2 ML VIAL IVP ONE (14:04)
--- NOTE | 2016-06-22 14:23 | POSTOPPROG ---
Post Op Note Date of Operation: 06/22/16 Surgeon: Philip Feldman Stratigrapher: Marley Olivera Anesthesiologist: Priyanka Garcia Anesthesia: GET(General Endotracheal) Pre-op Diagnosis: hematoma Post-op Diagnosis: same Indication: 55 Y F c VH site hematoma c drainage and pain. Cirrhosis, factor VII def Procedure: I&D abdominal wall hematoma. Findings: clot Inf/Abcess present in the surg proc area at time of surgery?: No EBL: Minimal Complications: none Drains: Omid Santana
--- NOTE | 2016-06-22 16:35 | SOAPPROG ---
SOAP Progress Note Assessment/Plan: Assessment: 1. Hyponatremia. Likely has a component of polydipsia with possible underlying SIADH (Uosm 296, Na 110). Na was around 130 during past hospital stay. Perioperative factors (nausea/pain ) may have worsened ADH secretion. Appears to have tolerated correction. Advised she maintain fluid intake to < 1.5 L (6 glasses) per day at home. Would liberalize Na intake as well. Can d/c lasix. Check TSH, cortisol. Should have labs within 1 wk of discharge with PCP to ensure stability. Will sign off. 2. Abdominal wall hematoma. Drained today. Plan: 06/22/16 16:33 06/22/16 16:35 Subjective: No complaints today except constipation. Had drainage of abdominal wall hematoma earlier today. Objective: Vital Signs Temp Pulse Resp BP Pulse Ox 36.9 C 66 14 106/74 99 06/22/16 15:29 06/22/16 15:29 06/22/16 15:29 06/22/16 15:29 06/22/16 15:29 Laboratory Results 06/22/16 04:18 06/22/16 04:18 06/21/16 06/22/16 06/23/16 05:59 05:59 05:59 Intake Total 800 1989 510 Output Total 1400 2275 612 Balance -600 -286 -102 PT 15.3 SEC (12.0-15.0) H 06/21/16 17:49 INR 1.21 (0.83-1.16) H 06/21/16 17:49 RRR, no m/g/r CTAB Abdom soft, midline bandage in place No LE edema ICD10 Worksheet Patient Problems: Problems Problem Status Onset Incarcerated ventral hernia Acute Fever Acute Abdominal wall hematoma Acute
--- NOTE | 2016-06-22 17:47 | HOSPPROG ---
Hospitalist Progress Note Assessment/Plan: Assessment: 55-year-old female presents with acute postoperative abdominal wall hematoma complicated by acute on chronic hyponatremia, bipolar disease type 1 Plan: 1. Postoperative abdominal wall hematoma. Acute, moderate size, noted on abdominal CT, secondary to patient driven factors including the patient advancing her activity much too quickly immediately following her ventral hernia repair surgery, resulting in local bleeding and hematoma formation -it is unclear to what degree her factor 7 deficiency is playing a role -that being said, after discussion with Dr. Rodriguez, we both feel that patient should empirically receive factor 7 replacement given that it could be contributing to the size and potential risk of complication of the hematoma, which she has received preoperatively and will receive 12 hours postoperatively -the patient underwent surgical evacuation today, drain in place -appreciate ongoing surgical management 2. Hyponatremia. Acute on chronic, most likely secondary to combination of a component of polydipsia as well as underlying SIADH, chronically around 130 -status post DDAVP and D5W after patient's serum sodium level corrected faster than is optimal -continue fluid restriction -encourage solute intake -continue to monitor on a daily basis -can discontinue Lasix 3. Atelectasis. Resulting in postoperative hypoxia, ordered incentive spirometry 4. Bipolar disease type 1. Attempt to gently manage any manic symptoms, these can exacerbate her hematoma if she advance her activity too quickly Diet. Regular Prophylaxis. High risk patient, SCDs Code. Full Disposition. Anticipated discharge is uncertain this time, pending clinical resolution of above Subjective: Patient reports that pain is well managed Objective: Vital Signs Temp Pulse Resp BP Pulse Ox 36.9 C 66 14 106/74 99 06/22/16 15:29 06/22/16 15:29 06/22/16 15:29 06/22/16 15:29 06/22/16 15:29 Laboratory Results 06/22/16 04:18 06/22/16 04:18 06/21/16 06/22/16 06/23/16 05:59 05:59 05:59 Intake Total 800 1989 510 Output Total 1400 0638 612 Balance -600 -286 -102 PT 15.3 SEC (12.0-15.0) H 06/21/16 17:49 INR 1.21 (0.83-1.16) H 06/21/16 17:49 - Physical Exam Constitutional: no apparent distress, appears nourished, not in pain Cardiovascular: regular rate and rhythym, no murmur, rub, or gallop, No tachycardia, No edema Respiratory: inspiratory crackles (Bilateral bases), No reduced air movement, No expiratory wheeze, No bronchial breath sounds Gastrointestinal: normoactive bowel sounds, tenderness (Mild around surgical site midepigastric area), distension (Moderate), No guarding Skin: other (Ecchymoses along the left lower abdomen, mid lower abdomen, no surrounding erythema) Neurologic: AAOx3, No facial droop Psychiatric: interacting appropriately, not anxious, not encephalopathic, thought process linear, No agitated ICD10 Worksheet Patient Problems: Problems Problem Status Onset Abdominal wall hematoma Acute Fever Acute Incarcerated ventral hernia Acute
--- NOTE | 2016-06-22 18:07 | SOAPPROG ---
SOAP Progress Note Assessment/Plan: Assessment: 1) Mild factor 7 deficiency 2) Abdominal wall hematoma s/p I&D 06/22 Plan: Patient received NovoSeven prior to her I&D today. Procedure went well without complication. No evidence of post op bleeding this evening. Dr. Barriga has written for 1 additional dose of NovoSeven (15 mcg/kg) to be given at 2 am (12 hours post op). I do not think she will require any additional NovoSeven after that. Plan d/w patient and Dr. Barriga. 06/22/16 18:04 Subjective: Underwent I&D of abdominal wall hematoma today. Doing well post op. Objective: Vital Signs Temp Pulse Resp BP Pulse Ox 36.9 C 66 14 106/74 99 06/22/16 15:29 06/22/16 15:29 06/22/16 15:29 06/22/16 15:29 06/22/16 15:29 Laboratory Results 06/22/16 04:18 06/22/16 04:18 06/21/16 06/22/16 06/23/16 05:59 05:59 05:59 Intake Total 800 1989 1750 Output Total 1400 2275 614 Balance -600 -286 1136 PT 15.3 SEC (12.0-15.0) H 06/21/16 17:49 INR 1.21 (0.83-1.16) H 06/21/16 17:49 - Time Spent With Patient Time Spent With Patient: 15 minutes Physical Exam - Physical Exam General Appearance: alert, no apparent distress Abdomen: other (Surgical site bandaged. Bandage C/D/I. No evidence of bleeding) ICD10 Worksheet Patient Problems: Problems Problem Status Onset Abdominal wall hematoma Acute Fever Acute Incarcerated ventral hernia Acute
[2016-06-22] MEDS: traZODone 50 MG TAB PO SCH (21:18)
[2016-06-22] MEDS: lamoTRIgine 100 MG TAB PO SCH (21:18)
[2016-06-23] MEDS ORDERED: [UNRECOGNIZED DRUG - MIXTURE] IVP ONE (02:00)
[2016-06-23] MEDS ORDERED: [UNRECOGNIZED DRUG - OTHER] IV ONE (02:00)
[2016-06-23] MEDS: OXYCODONE/APAP 5/325 TAB PO PRN (04:29)
[2016-06-23 04:56] VITALS: RESP 16
[2016-06-23 05:44] LABS: HEMATOCRIT 37.8 % (38.0-47.0); HEMOGLOBIN 12.9 g/dL (12.6-16.3); MEAN CELL HEMOGLOBIN 32.2 pg (27.9-34.1); MEAN CELL HEMOGLOBIN CONCENTR. 34.1 g/dL (32.4-36.7); MEAN CELL VOLUME 94.3 fL (81.5-99.8); RED BLOOD CELL COUNT 4.01 10^6/uL (4.18-5.33); RED CELL DISTRIBUTION WIDTH 12.9 % (11.5-15.2)
[2016-06-23 05:54] LABS: CALCIUM 8.8 mg/dL (8.5-10.4); CARBON DIOXIDE 31 mEq/l (22-31); CHLORIDE 93 mEq/L (97-110); CREATININE 0.5 mg/dL (0.6-1.0); GLOMERULAR FILTRATION RATE > 60; GLUCOSE 104 mg/dL (70-100); SODIUM 129 mEq/L (134-144)
[2016-06-23 06:44] LABS: ANION GAP 5 mEq/L (8-16); POTASSIUM 4.5 mEq/L (3.5-5.2)
[2016-06-23] MEDS: clonazePAM 1 MG TAB PO PRN (06:49)
[2016-06-23] MEDS: Desvenlafaxine Succinate [Pristiq] 50 MG PO SCH (07:32)
[2016-06-23 08:02] VITALS: BP 90/58; PULSE 70; TEMP 97.7
[2016-06-23 09:19] VITALS: O2SAT 83
[2016-06-23] MEDS ORDERED: BISACODYL 10 MG SUPP PR PRN (09:56)
[2016-06-23] MEDS ORDERED: SENNOSIDES/DOCUSATE SODIUM TAB PO SCH (09:56)
[2016-06-23] MEDS ORDERED: MAGNESIUM HYDROXIDE 30 ML UDCUP PO PRN (09:56)
--- NOTE | 2016-06-23 10:26 | SOAPPROG ---
SOAP Progress Note Assessment/Plan: Assessment:Plan: Hyponatremia-likely component of polydipsia -earlier urine studies suggests she has a mixed disorder -patient's fluid intake at home reviewed -he sodium is still low today at a level of 129 -she is on a fluid restriction of 1500 with documented intakes of of 1988 and 1959 the last 48 hours -the principles of hyponatremia and treatment with fluid restriction were reviewed with patient -repeat urine studies -TSH was normal on 04/22/2016 -will check am cortisol for the sake of completeness 06/23/16 10:27 Subjective: did not sleep well Objective: Vital Signs Temp Pulse Resp BP Pulse Ox 36.5 C 70 16 90/58 L 83 L 06/23/16 08:00 06/23/16 08:00 06/23/16 08:00 06/23/16 08:00 06/23/16 09:18 Laboratory Results 06/23/16 03:41 06/23/16 03:41 06/22/16 06/23/16 06/24/16 05:59 05:59 05:59 Intake Total 1988 1959 Output Total 5 624 Balance -286 1336 PT 15.3 SEC (12.0-15.0) H 06/21/16 17:49 INR 1.21 (0.83-1.16) H 06/21/16 17:49 Physical Exam - Physical Exam General Appearance: WD/WN, alert EENT: normal ENT inspection Neck: normal inspection Respiratory: lungs clear, normal breath sounds, No respiratory distress Cardiac/Chest: regular rate, rhythm, No diastolic murmur, No systolic murmur Abdomen: normal bowel sounds, non-tender Extremities: No swelling ICD10 Worksheet Patient Problems: Problems Problem Status Onset Abdominal wall hematoma Acute Fever Acute Incarcerated ventral hernia Acute
--- NOTE | 2016-06-23 10:42 | SOAPPROG ---
SOAP Progress Note Assessment/Plan: Assessment: 1) Mild factor 7 deficiency 2) Abdominal wall hematoma s/p I&D 06/22 Plan: Patient received NovoSeven prior to her I&D. Procedure went well without complication. No evidence of post op bleeding. She was given 1 additional dose of NovoSeven (15 mcg/kg) at 2 am (12 hours post op) this morning as a precaution. I do not think she requires any additional NovoSeven at this point. She would benefit from establishing with a unhairer. It would be more convenient for her to be seen in [place], so I will have our office reach out to her to get her an outpatient appointment with Dr. Hickman. Ok for discharge today from a hematology standpoint. 06/22/16 18:04 06/23/16 10:38 Subjective: Feels well. Hoping to go home. No significant post operative bleeding. Objective: Vital Signs Temp Pulse Resp BP Pulse Ox 36.5 C 70 16 90/58 L 83 L 06/23/16 08:00 06/23/16 08:00 06/23/16 08:00 06/23/16 08:00 06/23/16 09:18 Laboratory Results 06/23/16 03:41 06/23/16 03:41 06/22/16 06/23/16 06/24/16 05:59 05:59 05:59 Intake Total 1989 1960 Output Total 2275 624 Balance -286 1336 PT 15.3 SEC (12.0-15.0) H 06/21/16 17:49 INR 1.21 (0.83-1.16) H 06/21/16 17:49 - Time Spent With Patient Time Spent With Patient: 15 minutes Physical Exam - Physical Exam General Appearance: alert, no apparent distress Abdomen: other (Soft, nontender. Post operative incision bandaged. Bandage C/D/ I without active bleeding. No residual hematoma. CHILANGO drain in place.) Neuro/Psych: alert ICD10 Worksheet Patient Problems: Problems Problem Status Onset Abdominal wall hematoma Acute Fever Acute Incarcerated ventral hernia Acute
--- NOTE | 2016-06-23 11:03 | PDIAF ---
- Diagnosis Diagnosis: Hematoma post-op, Chronic Hyponatremia (SIADH) Code Status: Full Code - Medication Management Discharge Medications: Medications to Continue on Transfer Acetaminophen [Tylenol ES 500 mg (*)] 1,000 mg PO DAILY PRN 06/20/16 [Last Taken Unknown] DESVENLAFAXINE SUCCINATE [PRISTIQ] 50 mg PO DAILY 06/20/16 [Last Taken 06/20/16] Polyethylene Glycol 3350 [Miralax 17 gm (*)] 17 gm PO DAILY PRN 06/20/16 [Last Taken 06/20/16] clonazePAM [klonoPIN (*)] 1 mg PO DAILY PRN 06/20/16 [Last Taken 06/20/16] lamoTRIgine [LamICTAL 100 MG (*)] 100 mg PO HS 06/20/16 [Last Taken 06/19/16] traZODone [traZODONE 50MG (*)] 100 mg PO HS 06/20/16 [Last Taken 06/19/16] Bisacodyl [Dulcolax] 5 mg PO DAILY PRN #30 tablet. 06/23/16 [Last Taken Unknown] Sennosides/Docusate Sodium [Senokot-S] 1 - 2 tab PO BID #60 tab 06/23/16 [Last Taken Unknown] oxyCODONE/APAP 5/325 [Percocet 5/325 (*)] 0.5 - 1 tab PO DAILY PRN #30 tab 06/23 [Last Taken Unknown] Tool Honing Machine Set Up Operator Antibiotics: NA Discharge Medications: Refer to the Discharge Home Medication list for PRN reason. PICC Care - Routine: N/A - Orders Services needed: Home Care, Registered Nurse (drain/wound care) Home Care Face to Face: I certify that this patient was under my care and that I had the required [id number] encounter meeting the encounter requirements on the discharge day. My findings support the fact that the patient is homebound as defined in CMS Chapter 7 Medicare Benefits Manual 30.1.1, The condition of the patient is such that there exists a normal inability to leave home and consequently, leaving home would require a considerable and taxing effort. Oxygen: 4L NC Diet Recommendation: no restrictions on diet, fluid restriction (use comment for amount) (1.5L daily) [place]: Not applicable Wound Care Instructions: keep dressing clean and dry, keep drain in place Sutures/[place] Site: will be assessed at Dr. Feldman' office on 06/27 Activity/Weight Bearing Restrictions: as tolerates, avoid sit-ups and exertional activity until seen in clinic - Labs/Radiology BMP Date: 06/27/16 CBC Date: 06/27/16 Call or Fax Lab and Imaging Results to: Dr. Feldman and Dr. Cabello - Follow Up Care Current Providers and Referrals: Vickie Ponce MD [Primary Care Provider] - As per Instructions Philip Feldman MD [Medical Doctor] - 3-5 days (please call and schedule appointment for 06/27 (with Dr. Feldman or Marley GUZMAN)) Omar Cabello MD [Medical Doctor] - follow up in 1 week
--- NOTE | 2016-06-23 11:12 | PDDCSUM ---
Discharge Summary Discharge Summary: DISCHARGE SUMMARY FOLLOW-UP ITEMS: Repeat potassium, serum sodium, creatinine, CBC on 06/27 DATE OF ADMISSION: 06/20/2016 DATE OF DISCHARGE: 06/23/2016 DISCHARGE DIAGNOSES: 1. Acute postoperative abdominal wall hematoma 2. Acute on chronic hyponatremia 3. Acute atelectasis 4. Bipolar disease type 1 5. Factor 7 deficiency CONSULTATIONS: Hematology, general surgery PROCEDURES / IMAGIN06/22/2016 hematoma evacuation and indwelling drain placement by Dr. Feldman CHIEF COMPLAINT: Acute abdominal hematoma and pain SUBJECTIVE: Patient is feeling well at time of discharge, she reports that the dressing tape is somewhat irritated PHYSICAL EXAM ON DISCHARGE: Systolic blood pressure 110, heart rate 70, afebrile overnight, satting well on 4 L nasal cannula, skin demonstrates some fading ecchymoses inferior to the surgical site and along the lateral abdomen, area is soft, mildly tender, not losing any blood, drain is in place, bowel sounds are present, faint inspiratory crackles in the bilateral bases, otherwise clear air movement on inspiration and expiration bilaterally, patient is active but not manic LABS ON DISCHARGE: Hemoglobin 12.9, serum sodium 129, potassium 4.5, creatinine 0.5 HOSPITAL COURSE BY PROBLEM: 1. Acute postoperative abdominal wall hematoma. Moderate size, causing discomfort and swelling, noted on abdominal CT, secondary to the patient driven factors including the patient advancing her activity too much too quickly immediately following her ventral hernia repair surgery, resulting in local bleeding and hematoma formation. Patient was given all the appropriate recommendations at the time of her ventral hernia repair and the development of this hematoma is completely patient driven. That said, given the size and symptoms associated with it, surgical evacuation is appropriate and Dr. Feldman performed this procedure on 06/22. The patient does have an indwelling drain and this will continue until she is seen Clinic on 06/27. At the present time, her abdominal pain is significantly improved, she will be continued on oral pain medications as needed. She has also been placed on a bowel regimen to avoid constipation and exacerbating any abdominal discomfort. 2. Acute on chronic hyponatremia. Most likely secondary to a combination of polydipsia as well as underlying SIADH, with acute exacerbation being also patient driven issue secondary to non adherence to fluid restriction. She was seen in consultation by Nephrology after her serum sodium level corrected too rapidly with the administration of IV fluids and oral fluid restriction. She received DDAVP as well as D5W. Her serum sodium level corrected at a more appropriate pace and her discharge serum sodium level was near her baseline of 130. She should follow up with the Nephrology Clinic in 1 week and have repeat labs performed next Monday. She was provided with fluid restriction instructions by the target network analyst as well as her primary hospital medicine team. 3. Acute atelectasis. Resulting in postoperative hypoxia, patient is adhering to incentive spirometry, she continues to require supplemental oxygen and has this ordered for home. We advised adherence. 4. Bipolar disease type 1. Patient's nurses who cared for her after her original surgery expressed concern that the patient was behaving rather medically resulting in non adherence as outlined above. During this hospitalization, the patient was active but not manic and she was directable and adhering to recommendations. She will be continued on all of her home medications. 5. Factor 7 deficiency. Patient's labs are consistent with either factor 7 deficiency carrier versus mild factor 7 deficiency. Given that the patient did experience a bleeding complication in the setting of recent surgery, factor 7 replacement was indicated per our Hematology colleagues. She received weight based dosing of factor 7 perioperatively as well as 12 hours after her surgery. She did not experience any side effects. DISCHARGE MEDICATIONS: Please see official discharge medication reconciliation sheet in chart , as- needed Percocet, scheduled Senokot S while on narcotics, as needed bisacodyl. DISCHARGE INSTRUCTIONS: Please keep the drain in place, keep the affected area clean dry and intact, follow up with Dr. Feldman office on Monday next week. TIME SPENT: Greater than 30 minutes were spent on direct patient care, as well as discharge planning and preparation.
--- NOTE | 2016-06-25 08:45 | GOP ---
[f rep st] OPERATIVE REPORT DATE OF OPERATION: 06/22/2016 SURGEON: Philip Feldman MD ASSISTANT ENGINEER: ANKITA Briseno. ANESTHESIOLOGIST: Ana Garcia MD. 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 PROCEDURE PERFORMED: Evacuation of abdominal wall hematoma. FINDINGS: 100 cc hematoma in the abdominal wall. ESTIMATED BLOOD LOSS: None. DESCRIPTION OF PROCEDURE: The patient was first given factor VII replacement then received satisfac tory general endotracheal anesthesia by Dr. Garcia. She was placed in supine position, prepped and draped in the usual sterile fashion. A transverse incision was made through a previous old incisio n. Hematoma was encountered. This was evacuated and copiously irrigated, and then the cavity was s prayed with topical thrombin. A 15 round silicone CHILANGO drain was brought out through a separate stab incision and secured to the skin with a silk suture. The subcu was closed with running 3-0 Vicryl, and the skin with a 4-0 Monocryl subcuticular stitch. She tolerated the procedure well and was take n to the recovery room in good condition. /[id number]/MODL
== END 2016-06-23 13:09 | disposition home health service (06) | DRG 908 ==
LOC: F2W 20:05
PROVIDERS: ADMIT Internal Medicine; ATTEND Internal Medicine
PROC: 0W9F0ZZ Drainage of Abdominal Wall, Open Approach (ICD-10-PCS; principal; 2016-06-22 13:00)
DX: K91.870 Postprocedural hematoma of a digestive system organ or structure following a digestive system procedure (principal); D68.2 Hereditary deficiency of other clotting factors; E87.1 Hypo-osmolality and hyponatremia; J98.11 Atelectasis; R09.02 Hypoxemia; F31.9 Bipolar disorder, unspecified; J44.9 Chronic obstructive pulmonary disease, unspecified; Z99.81 Dependence on supplemental oxygen; Z86.19 Personal history of other infectious and parasitic diseases; F17.210 Nicotine dependence, cigarettes, uncomplicated
CPT/HCPCS: 85230-90; 85240-90; 85670-90; 96374; J0690; J1100; J1170; J2405; J2597; J2704; J3010; J7189; Q9967

== ENCOUNTER → 2016-12-20 | Outpatient (CLI) | payer OTHER, MEDICAID | LOC: BHFA 08:30 | PROVIDERS: ATTEND Internal Medicine Interventional Cardiology | DX: R07.9 Chest pain, unspecified (principal) | CPT/HCPCS: 78452; 93017; A9500; J2785 ==

== ENCOUNTER → 2017-04-24 | Outpatient (CLI) | payer OTHER, MEDICAID ==
[~2017-04-24] MED LIST changes: +IOPAMIDOL (ISOVUE 370) 100 ML BTL IV ONE; -IOPAMIDOL (ISOVUE-300) 100 ML BTL IV ONE
== END ==
LOC: FIMAGING 13:09
PROVIDERS: ATTEND Nurse Practitioner Adult Health
DX: Z09 Encounter for follow-up examination after completed treatment for conditions other than malignant neoplasm (principal); I51.7 Cardiomegaly; R91.8 Other nonspecific abnormal finding of lung field; Z86.711 Personal history of pulmonary embolism
CPT/HCPCS: 71275; Q9967

== ENCOUNTER 2018-03-27 14:18 | Observation (INO) | payer OTHER, MEDICAID ==
[2018-03-27 15:03] LABS: PLATELET COUNT 246 10^3/uL (150-400)
[2018-04-03] MEDS ORDERED: LR 1,000 ML IV ONE (07:18)
[2018-04-03] MEDS ORDERED: LIDOCAINE 1% 2 ML INJ ID PRN (07:18)
--- NOTE | 2018-04-03 08:06 | PDHPUP ---
History & Physical Update H&P update statement: This history and physical update is based on an assessment of the patient which was completed after admission or registration (within 24 hours), but prior to the surgery/procedure. H&P update: H&P reviewed & patient examined, no change in patient's condition since H&P completed
--- NOTE | 2018-04-03 08:07 | POSTOPPROG ---
Post Op Note Date of Operation: 04/03/18 Surgeon: Jay Ang Compressor Operator: Kirti Fulton PA-C Anesthesiologist: Dr. Joseph Anesthesia: IV Sedation Pre-op Diagnosis: Incisional hernia Post-op Diagnosis: same Procedure: Open incisional hernia repair with mesh Inf/Abcess present in the surg proc area at time of surgery?: No EBL: Minimal Complications: no immediate
[2018-04-03] MEDS ORDERED: MIDAZOLAM 2 MG/2 ML VIAL IVP ONE (08:20)
--- NOTE | 2018-04-03 08:20 | PDANEPAE ---
ANE History of Present Illness 57 year old with incisional hernia ANE Past Medical History - Cardiovascular History Hx Hypertension: No Hx Arrhythmias: No Hx Chest Pain: No Hx Coronary Artery / Peripheral Vascular Disease: Yes Hx CHF / Valvular Disease: No Hx Palpitations: No Cardiovascular History Comment: FACTOR VII DEFICIENCY - Pulmonary History Hx COPD: Yes Hx Asthma/Reactive Airway Disease: No Hx Recent Upper Respiratory Infection: No Hx Oxygen in Use at Home: Yes O2 in Use at Home (L/minute): NOC AND PRN - PORTABLE TANK Hx Sleep Apnea: No Sleep Apnea Screening Result - Last Documented: Negative Pulmonary History Comment: PE IN PAST - Neurologic History Hx Cerebrovascular Accident: No Hx Seizures: No Hx Dementia: No - Endocrine History Hx Diabetes: No - Renal History Hx Renal Disorders: Yes Renal History Comment: wears pads sometimes has some leakage/ dribbling. RECURRENT BLADDER INFs - Liver History Hx Hepatic Disorders: No - Neurological & Psychiatric Hx Hx Neurological and Psychiatric Disorders: Yes Neurological / Psychiatric History Comment: bipolar. depression. anxiety. FACTOR VII DEFICIENCY - Cancer History Hx Cancer: No - Congenital Disorder History Hx Congenital Disorders: No - GI History Hx Gastrointestinal Disorders: Yes Gastrointestinal History Comment: chronic idiopathic constipation. ileus 2015 - Other Health History Other Health History: OSTEOARTHRITIS. wears glasses. upper denture. lower partial - Chronic Pain History Chronic Pain: Yes (osteoarthritis) - Surgical History Prior Surgeries: tubal ligation. CHOLECYSTECTOMY. HERNIA R ANE Review of Systems Review of Systems: - Exercise capacity METS (RN): 3 METS ANE Patient History - Allergies Allergies/Adverse Reactions: metal Allergy (Uncoded 06/20/16 14:02) Rash - Home Medications Home medications: home medication list seen and reviewed Home Medications: Acetaminophen [Tylenol ES 500 mg (*)] 1,000 mg PO DAILY PRN 06/20/16 [Last Taken 04/02/18] Polyethylene Glycol 3350 [Miralax 17 gm (*)] 17 gm PO DAILY PRN 06/20/16 [Last Taken 04/03/18 04:30] clonazePAM [klonoPIN (*)] 1 mg PO DAILY PRN 06/20/16 [Last Taken 04/03/18 04:30] lamoTRIgine [LamICTAL 100 MG (*)] 100 mg PO HS 06/20/16 [Last Taken 04/02/18] traZODone [traZODONE 50MG (*)] 100 mg PO HS 06/20/16 [Last Taken 04/02/18] ALBUTEROL SULFATE 1.25 MG/3 ML 03/26/18 [Last Taken 04/02/18] Aspirin 03/26/18 [Last Taken 04/02/18] Atorvastatin Calcium 03/26/18 [Last Taken 04/03/18 04:30] Methenamine Mandelate 03/26/18 [Last Taken 04/02/18] Pantoprazole Sodium 03/26/18 [Last Taken 04/01/18] Trelegy Ellipta 100-62.5-25 IH 03/26/18 [Last Taken 04/02/18] Venlafaxine HCl 03/26/18 [Last Taken 04/03/18 04:30] Ventolin Hfa 03/26/18 [Last Taken 04/02/18] - NPO status NPO Since - Liquids (Time): 04:45 - Anes Hx Hx Anesthesia Complications (with details): Hx of post op bleeding - Smoking Hx Smoking Status: Current some day smoker - Family Anes Hx Family Hx Anesthesia Complications: none ANE Labs/Vital Signs - Labs Result Diagrams: 03/27/18 14:32 03/27/18 14:32 - Vital Signs Height: 162.56 cm Weight: 61.689 kg ANE Physical Exam - Airway Neck exam: FROM Mallampati Score: Class 1 Mouth exam: normal dental/mouth exam - Pulmonary Pulmonary: no respiratory distress - Cardiovascular Cardiovascular: regular rate and rhythym - ASA Status ASA Status: III ANE Anesthesia Plan Anesthesia Plan: MAC
[2018-04-03] MEDS ORDERED: [UNRECOGNIZED DRUG - MIXTURE] IVP SCH (08:30)
[2018-04-03] MEDS ORDERED: IPRATROPIUM/ALBUTEROL 3 ML DEYVIAL IH ONE (08:30)
[2018-04-03] MEDS ORDERED: [UNRECOGNIZED DRUG - MIXTURE] IVP SCH ×2 (08:30→15:00)
[2018-04-03] MEDS ORDERED: COAGULATION FACTOR VIIA RECOMBINANT IVP ONE ×2 (08:30→15:00)
[2018-04-03] MEDS ORDERED: BUPIVACAINE/EPI 0.5% 30 ML SDV ONE (08:43)
[2018-04-03] MEDS ORDERED: PROPOFOL/EMULSION 500 MG/50 ML BOTTLE IV ONE (08:46)
[2018-04-03] MEDS ORDERED: fentaNYL 100 MCG/2 ML INJ ONE ×2 (08:46→09:49)
[2018-04-03] MEDS ORDERED: LIDOCAINE 1% 300 MG/30 ML SDV ONE (08:53)
[2018-04-03] MEDS ORDERED: NALOXONE HCL 0.4 MG/ML INJ IVP PRN (09:33)
[2018-04-03] MEDS ORDERED: ONDANSETRON 4 MG/2 ML VIAL IVP PRN (09:33)
[2018-04-03] MEDS ORDERED: PROMETHAZINE HCL 25 MG/ML INJ IVP PRN (09:33)
[2018-04-03] MEDS ORDERED: fentaNYL 100 MCG/2 ML INJ IVP PRN (09:33)
--- NOTE | 2018-04-03 09:33 | POSTANESTH ---
Post Anesthetic Evaluation Cardiovascular Status: Normal, Stable Respiratory Status: Normal, Stable, Requires Airway Assist Pain Control: Adequate, Prn Tx Ordered Nausea/Vomiting Control: Adequate, Prn Tx Ordered Complications Possibly Related to Anesthesia: None Noted
[2018-04-03] MEDS: HYDROCODONE/APAP 5/325 TAB PO PRN ×2 (11:02→15:00)
--- NOTE | 2018-04-03 12:06 | GOP ---
[f rep st] OPERATIVE REPORT DATE OF OPERATION: 04/03/2018 SURGEON: Jay Ang MD ASSISTANT MANAGER TRAINEE: Kirti Fulton. ANESTHESIA: MAC. ANESTHESIOLOGIST: Dr. Joseph. PREOPERATIVE DIAGNOSIS: Incisional hernia. POSTOPERATIVE DIAGNOSIS: 1. Incisional hernia. 2. Incarcerated incisional hernia with omentum. PROCEDURE PERFORMED: Incisional herniorrhaphy with 1.7 inch Ventralex mesh. FINDINGS: See below. INDICATIONS: 57-year-old female with a symptomatic epigastric incisional hernia. She is undergoing surgical repair at this time. Risks and benefits were explained, including bleeding, infection, recurrence, as well as bowel injury. Heightened potential for bleeding complications was discussed with her credit control assistant prior to surgery; Nova 7 is being infused perioperatively given her factor 7 deficiency. A manager surgical is standard, necessary and customary for the safe performance of this procedure. DESCRIPTION OF PROCEDURE: Monitored anesthesia care was started. The abdomen was pre-injected with 0.5% Marcaine and 1% lidocaine. A vertical midline incision was created. The 1 cm defect was present with incarcerated omentum. The fat was cleared back to healthy-appearing fascial edges. The fat was reduced back to the abdominal cavity. The abdominal fascia was notably attenuated. A 1.7 inch Ventralex mesh was inserted subfascially and closed vertically with a running Vicryl suture. Satisfactory hemostasis was assured. The wound was closed in layers with absorbable sutures followed by Dermabond. The patient was taken to recovery uneventfully. /[id number]/MODL MTDD
[2018-04-03 14:18] VITALS: BP 94/73
--- NOTE | 2018-04-03 15:09 | ASMTLACE ---
LACE Length of stay for Answers: Less than 1 day current admission Acuity / Level of Answers: No Care: Did the patient have an inpatient admission? Comorbidities - select Answers: Chronic pulmonary disease all that apply Coronary Artery Disease Opioid dependence / Chronic pain Other Notes: Hx of PE # of Emergency department Answers: 0 visits in the last 6 months Social determinants Answers: Mental health diagnosis (anxiety, depression, pers onality disorders, etc.) Score: 12 Date Signed: 04/03/2018 03:09 PM Electronically Signed By:Angie Street
== END 2018-04-03 16:23 | disposition home or self-care (01) ==
LOC: FSGY 14:18 → F3N 04-03 06:52 → F3E 04-03 07:25 → EDSTATUS 04-03 08:30 → F3E 04-03 10:30
PROVIDERS: ADMIT Surgery; ATTEND Surgery
PROC: 0WUF0JZ Supplement Abdominal Wall with Synthetic Substitute, Open Approach (ICD-10-PCS; principal; 2018-04-03 08:30)
DX: K43.0 Incisional hernia with obstruction, without gangrene (principal); F31.9 Bipolar disorder, unspecified; D68.2 Hereditary deficiency of other clotting factors; K21.9 Gastro-esophageal reflux disease without esophagitis; J44.9 Chronic obstructive pulmonary disease, unspecified; F17.210 Nicotine dependence, cigarettes, uncomplicated; Z87.442 Personal history of urinary calculi
CPT/HCPCS: 49561; 49568; C1781; J2250; J2704; J3010; J7189